=== PATIENT | female | born 1955 | race Caucasian/White ===

== ENCOUNTER 2024-10-06 05:54 | Day surgery (SDC) | payer MEDICARE, BC ==
[~2024-10-06 05:54] MED LIST: Dextrose 5%-0.45% NaCl 1,000 ML IV SCH; Propofol 200 MG/20 ML SDV ONE
[2024-10-06] MEDS ORDERED: Propofol 200 MG/20 ML SDV IV ONE (05:55)
[2024-10-06] MEDS ORDERED: Lactated Ringers 1,000 ML IV ONE (05:55)
[2024-10-06] MEDS ORDERED: Lidocaine 2% 20 ML MDV NERVRT ONE (05:55)
[2024-10-06] MEDS ORDERED: Dextrose 5%-0.45% NaCl 1,000 ML IV SCH (06:00)
[2024-10-06] MEDS: Lactated Ringers 1,000 ML IV SCH (06:30)
== END 2024-10-06 08:41 | disposition home or self-care (01) ==
LOC: DL.ENDO 05:54
PROVIDERS: ATTEND Internal Medicine Gastroenterology
DX: Z12.11 Encounter for screening for malignant neoplasm of colon (principal)
CPT/HCPCS: J2003; J2704; J7120